=== PATIENT | male | born 1970 | race Caucasian/White ===

== ENCOUNTER 2018-06-11 08:52 | Outpatient (CLI) | payer OTHER ==
[~2018-06-11 08:52] MED LIST: ALTEPLASE 2 MG VIAL IVP PRN; FLUMAZENIL 0.5 MG/5 ML MDV IVP PRN; GLUCAGON HCL 1 MG VIAL IVP PRN; HEPARIN 10,000 UNIT/10 ML MDV (1,000 UNIT/ML) IVP PRN; MEPERIDINE 25 MG/ML SYR IVP PRN; MIDAZOLAM 2 MG/2 ML VIAL IVP PRN; NALOXONE HCL 0.4 MG/ML INJ IVP PRN; PROTAMINE SULFATE 50 MG/5 ML VIAL IVP PRN; fentaNYL 100 MCG/2 ML INJ IVP PRN
[2018-06-11] MEDS ORDERED: NS 1,000 ML IV SCH (09:00)
[2018-06-11] MEDS ORDERED: MIDAZOLAM 2 MG/2 ML VIAL ONE (09:59)
[2018-06-11] MEDS ORDERED: fentaNYL 100 MCG/2 ML INJ ONE ×2 (10:00)
[2018-06-11 10:08] LABS: INR 0.94 (0.83-1.16); PROTIME(PATIENT) 12.8 SEC (12.0-15.0)
[2018-06-11 10:53] VITALS: BP 109/83
[2018-06-11] MEDS ORDERED: oxyCODONE IR 5 MG TAB PO PRN (11:02)
[2018-06-11] MEDS ORDERED: ONDANSETRON 4 MG/2 ML VIAL IVP PRN (11:02)
--- NOTE | 2018-06-11 11:03 | PDRADPRE ---
Radiology History & Physical Indication for procedure: liver disease (Liver lesion right posterior lobe; plan for US guided aspiration of fluid vs. biopsy of solid component) Allergies/Adverse Reactions: Penicillins Allergy (Verified 06/09/18 16:21) Anaphylaxis Mental status: A&Ox3 Heart exam: regular rate and rhythm Lungs exam: clear to auscultation Mallampati Score: Class 2
--- NOTE | 2018-06-11 11:03 | PDPROPOC ---
Sedation Plan of Care Sedation Plan of Care: vital signs stable, mental status noted, patient educated of risks, benefits, alternatives, patient can tolerate sedation ASA Classification: ASA 2 Planned drugs: fentanyl, midazolam Mallampati Score: Class 2 Mallampati Reference Image: Patient passed 3-3-2 rule?: Yes
--- NOTE | 2018-06-11 11:05 | PDRADPN ---
Radiology Procedure Note Date of Procedure: 06/11/18 Radiologist: Willy Weems Anesthesia: IV Sedation Pre-op Diagnosis: Liver lesion Post-op Diagnosis: Liver lesion Indication: Right lobe liver lesion Procedure: US guided biopsy Finding(s): Hyperechoic, solid lesion within posterior right bile duct and no vascularity. 18 ga core specimens sent in saline and fomalin. No hemorrhage post procedure visualized on US. Inf/Abcess present in the surg proc area at time of surgery?: No
== END 2018-06-11 14:20 | disposition home or self-care (01) ==
LOC: FIMAGING 08:52
PROVIDERS: ATTEND Internal Medicine
PROC: 0FB13ZX Excision of Right Lobe Liver, Percutaneous Approach, Diagnostic (ICD-10-PCS; principal; 2018-06-11)
DX: R93.2 Abnormal findings on diagnostic imaging of liver and biliary tract (principal); K73.9 Chronic hepatitis, unspecified
CPT/HCPCS: J2250; J3010